=== PATIENT | female | born 1990 | race Caucasian/White ===

== ENCOUNTER 2018-01-26 14:12 | Outpatient (CLI) | payer BC ==
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
--- NOTE | 2018-02-13 10:20 | EEG ---
Referring Physician: DR. OJ CROWE EEG # [id number] PROCEDURE: Outpatient Sleep Deprived Electroencephalogram NAME OF PATIENT: Beatrice Newberry 1990 DATE EEG DONE: 01/26/2018 INDICATION: Altered mental status, decreased responsiveness. EEG CLASSIFICATION: Normal awake and asleep. REPORT: This is a 22-channel digital EEG recording utilizing 10-20 international electrode placement system on a patient with history of TBI and seizures who presents with episodes of decreased responsiveness. During wakefulness, the background activity consists of low to moderate amplitude dominant alpha rhythm of 9-10 Hz, it is symmetric and reactive. This activity is penetrated with abundant myogenic activity representing frontalis and temporalis muscles bilaterally. There is also low amplitude beta activity seen. There is no epileptiform activity noted with the head tremors. DROWSINESS AND SLEEP: Subject is able to attain periods of drowsiness with diffuse theta activity and decreased myogenic activity. Subject is also able to attain adequate non-REM sleep with normal sleep potentials. There is no consistent asymmetry or paroxysmal activity noted. INDUCTION: HYPERVENTILATION: With fair effort results in no significant change in the background activity PHOTIC STIMULATION: Photic stimulation was stopped because patient complained of severe head pain and became very emotional with photic stimulation. The photic stimulation did not show any photic drive, had reactive background and increased myogenic activity was noted with photic stimulation. IMPRESSION: This is a sleep deprived EEG. This EEG is considered normal awake and asleep EEG. There is no clear epileptiform activity or focal abnormality noted. Clinical correlation recommended. Again, normal awake and asleep EEG. It was recorded for roughly 1 hour. Merchandising Execution Manager: LAURA Back Grinder: [email or web address]
== END 2018-01-26 14:13 | disposition home or self-care (01) ==
LOC: EEG 14:12
PROVIDERS: ATTEND Student in an Organized Health Care Education/Training Program
DX: S06.9X0A Unspecified intracranial injury without loss of consciousness, initial encounter (principal); R56.9 Unspecified convulsions
CPT/HCPCS: 70551; 95822

== ENCOUNTER 2019-06-24 12:13 | Outpatient (CLI) | payer MEDICARE ==
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
--- NOTE | 2019-06-24 18:38 | MRI ---
LUMBAR SPINE MRI NONCONTRAST: 06/24/19 INDICATION: Lumbar radicular pain. COMPARISON: 06/30/15. FINDINGS: Lumbar spine vertebral body heights and disc space heights are preserved. There is no acute marrow ed navneet. Disc space signal is preserved. Conus medullaris is normal in morphology, and utilizing prior nu mbering system, terminates at the L1 level. The central canal and neural foramina are maintained with out evidence of significant stenosis. IMPRESSION: No significant abnormalities of the lumbar spine. POS: [facility]
== END 2019-06-24 12:14 | disposition home or self-care (01) ==
LOC: SCSMRI 12:13
PROVIDERS: ATTEND Specialist
DX: M54.12 Radiculopathy, cervical region (principal); M54.16 Radiculopathy, lumbar region; M54.14 Radiculopathy, thoracic region
CPT/HCPCS: 72141; 72146; 72148

== ENCOUNTER 2019-08-25 14:51 | Outpatient (CLI) | payer MEDICARE, BC ==
--- NOTE | 2019-08-26 10:16 | MRI ---
MRI RIGHT SHOULDER PERFORMED WITHOUT CONTRAST ENHANCEMENT: Date: 08/25/19 HISTORY: Acute right shoulder pain. FINDINGS: The AC joint appears fairly unremarkable. The acromion is slightly laterally downsloping. The supra, as well as infraspinatus tendons are intact. Subscapularis muscle and tendon are normal in appearance. The biceps tendon is normal in position wit hin the bicipital groove. The bicipital labral complex is unremarkable. Some minimally increased signal change associated with the superior labrum, but no definitive SLAP tear on the noncontrast exam. The inferior glenohumeral l igamentous and labral complex is unremarkable. No significant muscle atrophy is seen. IMPRESSION: No evidence of rotator cuff or any definitive labral injury. POS: [facility]
== END 2019-08-25 14:52 | disposition home or self-care (01) ==
LOC: SCSMRI 14:51
PROVIDERS: ATTEND Orthopaedic Surgery
DX: M25.511 Pain in right shoulder (principal)